=== PATIENT | female | born 1975 | race Caucasian/White ===

== ENCOUNTER 2023-11-05 04:46 | Day surgery (SDC) | payer OTHER ==
[2023-11-02 18:04] VITALS: BMI 24.7
[2023-11-05] MEDS ORDERED: PROPOFOL 20 ML ONE ×2 (12:55→13:39)
[2023-11-05] MEDS ORDERED: MIDAZOLAM HCL 2 MG/2 ML SINGLE DOSE VIAL ONE (12:55)
[2023-11-05] MEDS ORDERED: SODIUM CHLORIDE 0.9% P/F 10 ML VIAL IJ ONE (12:57)
[2023-11-05] MEDS ORDERED: LIDOCAINE HCL/PF 2% SDV 5ML VIAL ONE (12:57)
[2023-11-05] MEDS ORDERED: ceFAZolin SODIUM 1 GM VIAL ONE (12:57)
[2023-11-05] MEDS ORDERED: oxyCODONE HCL 5 MG TABLET PO PRN (13:02)
[2023-11-05] MEDS ORDERED: ONDANSETRON 4 MG/2 ML VIAL IVPUSH PRN (13:02)
[2023-11-05] MEDS ORDERED: PROMETHAZINE HCL 25 MG/1 ML VIAL IVPB PRN (13:02)
[2023-11-05] MEDS ORDERED: KETOROLAC TROMETHAMINE 30 MG/1 ML VIAL ONE (13:30)
[2023-11-05] MEDS: FERRIC SUBSULFATE 500 ML BOTTLE TP ONE (13:41)
[2023-11-05] MEDS ORDERED: ONDANSETRON 4 MG/2 ML VIAL ONE (13:45)
[2023-11-05] MEDS ORDERED: DEXAMETHASONE SOD PHOSPHATE 4 MG/1 ML VIAL ONE (13:45)
[2023-11-05] MEDS ORDERED: IBUPROFEN 800 MG/8 ML IJ IVPB PRN (14:03)
[2023-11-05] MEDS ORDERED: ACETAMINOPHEN 325 MG TABLET (FP) PO PRN (14:03)
[2023-11-05] MEDS ORDERED: IBUPROFEN 600 MG TABLET (FP) PO PRN (14:03)
[2023-11-05] MEDS: LACTATED RINGERS SOLUTION 1,000 ML IV SCH (14:42)
[2023-11-05 15:32] VITALS: RESP 16
[2023-11-05 16:15] VITALS: BP 108/70; PULSE 50; TEMP 97.7
[2023-11-06] MEDS ORDERED: oxyCODONE HCL 5 MG TABLET PO PRN ×2 (02:03)
== END 2023-11-05 16:23 | disposition home or self-care (01) ==
LOC: JASU-SURG 04:46
PROVIDERS: ATTEND Obstetrics & Gynecology
PROC: 0UBC8ZX Excision of Cervix, Via Natural or Artificial Opening Endoscopic, Diagnostic (ICD-10-PCS; principal; 2023-11-05 13:00)
DX: D06.0 Carcinoma in situ of endocervix (principal); R87.613 High grade squamous intraepithelial lesion on cytologic smear of cervix (HGSIL)
CPT/HCPCS: 88307-TC; 88341-TC; 88342-TC; 94760